=== PATIENT | female | born 1950 | race Caucasian/White ===

== ENCOUNTER 2016-10-25 10:50 | Emergency (ER) | payer BC, MEDICARE ==
[2016-10-25 11:20] VITALS: BP 138/79
--- NOTE | 2016-10-25 11:34 | UC ---
Hand/Wrist HPI - HPI Summary HPI Summary: Pt fell 2 nights ago, injurying her right thumb. pain at base of thumb and swelling and bruising of thumb noted. - History Of Current Complaint Chief Complaint: UCUpperExtremity Stated Complaint: HAND INJURY Time Seen by Provider: 10/25/16 11:23 Hx Obtained From: Patient ?: No Onset/Duration: Sudden Onset, Lasting Days Severity Initially: Moderate Severity Currently: Moderate Pain Intensity: 4 Pain Scale Used: 0-10 Numeric Character Of Pain: Dull, Spasmodic, Stiffness Aggravating Factor(s): Movement Alleviating: Nothing Associated Signs And Symptoms: Positive: Swelling, Bruising - Allergies/Home Medications Allergies/Adverse Reactions: Allergies Allergy/AdvReac Type Severity Reaction Status Date / Time Wasp Sting Allergy Severe Anaphylatic Uncoded 10/25/16 11:07 Shock Home Medications: Home Medications buPROPion TAB* [Wellbutrin TAB*] 1 tab DAILY 10/25/16 [History Confirmed ] PMH/Surg Hx/FS Hx/Imm Hx Previously Healthy: Yes Cardiovascular History Of: Denies: Pacemaker/ICD - Surgical History Surgical History: Yes Surgery Procedure, Year, and Place: APPENDECTOMY, ENDOMETRIOSIS SURGERY, LT OOPHORECTOMY, RT FALLOPIAN TUBE REMOVED, SKIN CA REMOVAL'S, LT HAND SURGERY, RIGHT hand fracture - Family History Known Family History: Positive: Hypertension Negative: Cardiac Disease - Social History Alcohol Use: Weekly Substance Use Type: None Smoking Status (MU): Current Every Day Smoker Type: Cigarettes Amount Used/How Often: 1 ppd every 3 days - Immunization History Most Recent Influenza Vaccination: Fall 2015 Most Recent Tetanus Shot: 2014 Most Recent Pneumonia Vaccination: 2015 Review of Systems Constitutional: Negative Skin: Bruising Eyes: Negative ENT: Negative Respiratory: Negative Cardiovascular: Negative Gastrointestinal: Negative Genitourinary: Negative Motor: Negative Neurovascular: Negative Musculoskeletal: Arthralgia, Decreased ROM, Edema Neurological: Negative Psychological: Negative All Other Systems Reviewed And Are Negative: Yes Physical Exam Triage Information Reviewed: Yes Appearance: Well-Appearing, Well-Nourished, Pain Distress Vital Signs: Initial Vital Signs Temp 98 F 10/25/16 11:08 Pulse 61 10/25/16 11:08 Resp 18 10/25/16 11:08 BP 138/79 10/25/16 11:08 Pulse Ox 100 02/27/17 11:08 Vital Signs Reviewed: Yes Eye Exam: Normal Eyes: Positive: Conjunctiva Clear ENT Exam: Normal ENT: Positive: Normal ENT inspection, Hearing grossly normal, Pharynx normal, TMs normal Dental Exam: Normal Neck exam: Normal Neck: Positive: Supple, Nontender, No Lymphadenopathy Respiratory Exam: Normal Respiratory: Positive: Chest non-tender, Lungs clear, Normal breath sounds Cardiovascular Exam: Normal Cardiovascular: Positive: RRR, No Murmur, Pulses Normal Abdominal Exam: Normal Abdomen Description: Positive: Nontender, No Organomegaly, Soft Bowel Sounds: Positive: Present Musculoskeletal Exam: Normal Musculoskeletal: Positive: Strength Limited @, ROM Limited @ - in right thumb, Edema @ - thumb Neurological Exam: Normal Neurological: Positive: Alert, Muscle Tone Normal Psychological Exam: Normal Psychological: Positive: Normal Response To Family Skin Exam: Normal Hand/Wrist Course/Dx - Course Course Of Treatment: hx obtained, exam performed, meds reviewed, refused any pain medication xray obtained, no fracture noted. - Differential Dx/Diagnosis Differential Diagnosis/HQI/PQRI: Contusion, Dislocation, Sprain, Strain Provider Diagnoses: thumb sprain Discharge - Discharge Plan Condition: Stable Disposition: HOME Patient Education Materials: Kristen's Thumb (ED) Additional Instructions: continue to use your thumb, heat as needed to help with swelling reduction.
--- NOTE | 2016-10-25 11:53 | RAD ---
INDICATION: Right thumb injury. TECHNIQUE: 3 views of the right thumb were obtained. FINDINGS: The bones are in normal alignment. No fracture is seen. There is mild to moderate osteoarthritic change in the carpal metacarpal joint and interphalangeal joint. IMPRESSION: NO EVIDENCE FOR FRACTURE.
== END 2016-10-25 12:15 | disposition home or self-care (01) ==
LOC: UCEAST 10:50
DX: S63.601A Unspecified sprain of right thumb, initial encounter (principal); W19.XXXA Unspecified fall, initial encounter; Y93.9 Activity, unspecified; Y92.9 Unspecified place or not applicable; F17.210 Nicotine dependence, cigarettes, uncomplicated
CPT/HCPCS: 99201; G0463

== ENCOUNTER 2017-12-24 09:19 | Emergency (ER) | payer MEDICARE ==
[2017-12-24 09:28] VITALS: BP 157/91
--- NOTE | 2017-12-24 10:16 | UC ---
Lower Extremity/Ankle HPI - HPI Summary HPI Summary: fell down one step very early am today. landed on R knee. was amb after incident but knee painful and has a cut denies any other injury or pain - History of Current Complaint Chief Complaint: UCLowerExtremity Stated Complaint: RIGHT LEG INJURY Time Seen by Provider: 12/24/17 09:32 Hx Obtained From: Patient Onset/Duration: Sudden Onset Severity Initially: Moderate Severity Currently: Moderate Pain Intensity: 6 Able to Bear Weight: Yes - with pain - Allergies/Home Medications Allergies/Adverse Reactions: Allergies Allergy/AdvReac Type Severity Reaction Status Date / Time Wasp Sting Allergy Severe Anaphylatic Uncoded 10/25/16 11:07 Shock Home Medications: Home Medications NK [No Home Medications Reported] 12/24/17 [History Confirmed 12/24/17] PMH/Surg Hx/FS Hx/Imm Hx Previously Healthy: Yes - Surgical History Surgical History: Yes Surgery Procedure, Year, and Place: APPENDECTOMY, ENDOMETRIOSIS SURGERY, LT OOPHORECTOMY, RT FALLOPIAN TUBE REMOVED, SKIN CA REMOVAL'S, LT HAND SURGERY, RIGHT hand fracture - Family History Known Family History: Positive: Hypertension Negative: Cardiac Disease - Social History 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[employer] Lives: Alone Alcohol Use: Weekly Substance Use Type: None Smoking Status (MU): Current Every Day Smoker Type: Cigarettes Amount Used/How Often: 1 ppd every 3 days - Immunization History Most Recent Influenza Vaccination: Fall 2015 Most Recent Tetanus Shot: 2014 Most Recent Pneumonia Vaccination: 2015 Vaccination Up to Date: Yes Review of Systems Constitutional: Negative Skin: Other - abrasion R knee Respiratory: Negative Cardiovascular: Negative Musculoskeletal: Other: - R knee pain Neurological: Negative Psychological: Negative All Other Systems Reviewed And Are Negative: Yes Physical Exam Triage Information Reviewed: Yes Appearance: Well-Appearing, No Pain Distress, Well-Nourished Vital Signs: Initial Vital Signs Temp 97.6 F 12/24/17 09:25 Pulse 64 12/24/17 09:25 Resp 16 12/24/17 09:25 BP 157/91 12/24/17 09:25 Pulse Ox 100 12/24/17 09:25 Vital Signs Reviewed: Yes Respiratory Exam: Normal Cardiovascular Exam: Normal Musculoskeletal: Positive: Strength Intact, ROM Intact, Other: - pain with flexion R knee, no swelling Neurological Exam: Normal Psychological Exam: Normal Skin: Positive: Other - abrasion R knee Diagnostics - Radiology No standard instances Xray Interpretation: No Acute Changes Radiology Interpretation Completed By: Radiologist - no fracture Lower Extremity Course/Dx - Differential Dx/Diagnosis Differential Diagnosis/HQI/PQRI: Contusion, Fracture (Closed), Sprain, Strain, Other - abrasion Provider Diagnoses: Right knee contusion/abrasion Discharge - Sign-Out/Discharge Documenting (check all that apply): Discharge/Admit/Transfer - Discharge Plan Condition: Stable Disposition: HOME Patient Education Materials: Knee Pain (ED), Contusion in Adults (ED), Abrasion (ED) Referrals: Lalitha Yin MD [Primary Care Provider] - 1 Week (if no better) Additional Instructions: elevate leg and apply ice packs use ibuprofen or tylenol as directed for pain if needed use knee immobilizer for 3-5 days and rest knee return if your symptoms worsen at any time - Billing Disposition and Condition Condition: STABLE Disposition: HOME
--- NOTE | 2017-12-24 10:22 | RAD ---
Indication: RIGHT knee patella and posterior pain and swelling post fall. Comparison: February 01, 2013 MRI. Technique: RIGHT knee: AP, tunnel, lateral, sunrise views. Report: Small suprapatellar joint effusion. Negative for fracture or articular malalignment. Mild osteophytosis and mild diffuse joint space narrowing. Chronic cystic change at the lateral tibial plateau. Unremarkable soft tissue contours. IMPRESSION: Small joint effusion. No fracture evident. Kellgren and Tang grade 2 osteoarthritis.
== END 2017-12-24 10:45 | disposition home or self-care (01) ==
LOC: UCEAST 09:19
DX: S80.01XA Contusion of right knee, initial encounter (principal); S80.211A Abrasion, right knee, initial encounter; W10.9XXA Fall (on) (from) unspecified stairs and steps, initial encounter; Y93.9 Activity, unspecified; Y92.9 Unspecified place or not applicable; M25.461 Effusion, right knee; F17.210 Nicotine dependence, cigarettes, uncomplicated
CPT/HCPCS: 99213; G0463

== ENCOUNTER 2018-09-16 10:21 | Emergency (ER) | payer MEDICARE ==
--- NOTE | 2018-09-16 12:26 | UC ---
Truncal Trauma HPI - HPI Summary HPI Summary: 61 you female, with hx of asthma and smoking, fell approximately 10 hours ago and complains of right rib discomfort 8/10. Worse with inhalation. Elevated blood pressure noted. Significant pain. No shortness of breath. Nurse's note: fell over bucket of water injuring right sided ribs - History Of Current Complaint Chief Complaint: UCGeneralIllness Stated Complaint: RIB INJURY Time Seen by Provider: 09/16/18 11:18 Pain Intensity: 8 - Allergies/Home Medications Allergies/Adverse Reactions: Allergies Allergy/AdvReac Type Severity Reaction Status Date / Time Wasp Sting Allergy Severe Anaphylatic Uncoded 09/16/18 10:28 Shock PMH/Surg Hx/FS Hx/Imm Hx - Additional Past Medical History Additional PMH: No anti hypertensive medications. Lives by herself. Previously Healthy: Yes Cardiovascular History: Other - heart murmur Respiratory History: Asthma - Surgical History Surgical History: Yes Surgery Procedure, Year, and Place: APPENDECTOMY, ENDOMETRIOSIS SURGERY, LT OOPHORECTOMY, RT FALLOPIAN TUBE REMOVED, SKIN CA REMOVAL'S, LT HAND SURGERY, RIGHT hand fracture - Family History Known Family History: Positive: Hypertension, Other - cancer Negative: Cardiac Disease - Social History Occupation: Employed Part-time - sells wine Alcohol Use: Weekly Substance Use Type: None Smoking Status (MU): Current Every Day Smoker Type: Cigarettes Amount Used/How Often: 1 ppd every 3 days - Immunization History Most Recent Influenza Vaccination: Fall 2015 Most Recent Tetanus Shot: 2014 Most Recent Pneumonia Vaccination: 2016 Vaccination Up to Date: Yes Review of Systems All Other Systems Reviewed And Are Negative: Yes Constitutional: Positive: Negative Skin: Positive: Negative Eyes: Positive: Negative ENT: Positive: Negative Respiratory: Positive: Shortness Of Breath, Cough, Other - right chest pain Cardiovascular: Positive: Negative Gastrointestinal: Positive: Negative Genitourinary: Positive: Negative Motor: Positive: Negative Neurovascular: Positive: Negative Musculoskeletal: Positive: Negative Neurological: Positive: Negative Psychological: Positive: Negative Physical Exam - Summary Physical Exam Summary: Pulse jh=597; Blood pressure: 161/102 Triage Information Reviewed: Yes Appearance: Pain Distress - bent over at chest; uncomfortable. Vital Signs: Initial Vital Signs Temp 98.5 F 09/16/18 10:23 Pulse 83 09/16/18 10:23 Resp 18 09/16/18 10:23 BP 161/102 09/16/18 10:23 Pulse Ox 100 09/16/18 10:23 Vital Signs Reviewed: Yes Eye Exam: Normal ENT Exam: Normal Dental Exam: Normal Neck exam: Normal Neck: Positive: 1 Respiratory Exam: Normal Respiratory: Positive: Chest non-tender, Lungs clear, Normal breath sounds Cardiovascular Exam: Normal Cardiovascular: Positive: RRR, Pulses Normal Abdominal Exam: Normal Abdomen Description: Positive: Nontender, No Organomegaly, Soft Musculoskeletal Exam: Normal Neurological Exam: Normal Psychological Exam: Normal Skin Exam: Normal Truncal Trauma Course/Dx - Course Course Of Treatment: 67 yo, smoker, hx of asthma, fell injurying right anterior lateral ribs, 5,6,7. Patient is in pain and is hypertensive. NONDISPLACED FRACTURES OF THE RIGHT FIFTH, SIXTH, AND SEVENTH RIBS. THERE IS NO APPRECIABLE PNEUMOTHORAX. I encouraged patient to consider admission for observation for 24 hours. She refused. I also told her about her blood pressure. Patient will need to follow up in 2 days. - Differential Dx/Diagnosis Differential Diagnosis/HQI/PQRI: Chest Wall Contusion, Pneumothorax, Rib Fracture Provider Diagnosis: Multiple rib fractures, Hypertension Discharge - Sign-Out/Discharge Documenting (check all that apply): Patient Departure All imaging exams completed and their final reports reviewed: Yes - Discharge Plan Condition: Stable Disposition: HOME Patient Education Materials: Rib Fracture (ED) Referrals: Lalitha Yin MD [Primary Care Provider] - Additional Instructions: WE DISCUSSED: You have the following diagnosis: NONDISPLACED FRACTURES OF THE RIGHT FIFTH, SIXTH, AND SEVENTH RIBS. THERE IS NO APPRECIABLE PNEUMOTHORAX. I would recommend that you go to the ED for hospital admission. Since you don' t want to do that right now, you could go home and take care of your pets, and if you have ANY shortness of breath or elevation of temperature over the next few days, go to ED or call 911. See instructions attached to this discharge. Acetaminophen or ibuprofen for pain. No smoking. Warm moist heat to the area; ice massage can also help. Alternating ice/heat/ ice can help. GO TO ED FOR ANY INCREASED SHORTNESS OF BREATH, CHEST PAIN OR ELEVATED TEMPERATURE OR COUGH. - Billing Disposition and Condition Condition: STABLE Disposition: Home
[2018-09-16 12:30] VITALS: BP 161/97
== END 2018-09-16 12:39 | disposition home or self-care (01) ==
LOC: UCEAST 10:21
DX: S22.41XA Multiple fractures of ribs, right side, initial encounter for closed fracture (principal); W19.XXXA Unspecified fall, initial encounter; Y92.9 Unspecified place or not applicable; I10 Essential (primary) hypertension; Z91.030 Bee allergy status; F17.210 Nicotine dependence, cigarettes, uncomplicated
CPT/HCPCS: 99211; G0463